=== PATIENT | female | born 1990 | race Two or more races ===

== ENCOUNTER 2020-06-10 09:43 | Emergency (ER) | payer MEDICAID, OTHER ==
[~2020-06-10] VITALS: Ht 152.4 cm; Wt 71.2 kg
[2020-06-10 13:00] VITALS: BP 127/85
== END 2020-06-10 13:25 | disposition home or self-care (01) ==
LOC: ER 09:43
DX: J04.0 Acute laryngitis (principal); J06.9 Acute upper respiratory infection, unspecified; K80.20 Calculus of gallbladder without cholecystitis without obstruction; J18.9 Pneumonia, unspecified organism; Z20.822 Contact with and (suspected) exposure to COVID-19
CPT/HCPCS: 36415; 71046; 76705; 87426